=== PATIENT | female | born 1995 | race Caucasian/White ===

== ENCOUNTER 2018-05-02 23:46 | Inpatient (IN) ==
[2018-05-03 00:06] VITALS: BMI 47.4
[2018-05-03 00:07] LABS: BILIRUBIN,URINE NEGATIVE (NEGATIVE); BLOOD/HEMOGLOBIN,URINE 3+ (NEGATIVE); GLUCOSE, URINE NEGATIVE (NEGATIVE); KETONES,URINE 4+ (NEGATIVE); LEUKOCYTE ESTERASE ,URINE 3+ (NEGATIVE); NITRITES,URINE NEGATIVE (NEGATIVE); PROTEIN,URINE 1+ (NEGATIVE); UROBILINOGEN,URINE NORMAL (NORMAL)
[2018-05-03 00:13] LABS: APPEARANCE,URINE CLOUDY (CLEAR); COLOR,URINE YELLOW (YELLOW)
[2018-05-03 00:14] LABS: BACTERIA,URINE 2+ /HPF (NEGATIVE); CALCIUM OXALATE CRYSTALS,UR MANY /HPF (NEGATIVE); RBC,URINE 30-50 /HPF (NONE SEEN); SQUAMOUS EPITHELIAL CELL,UR NUMEROUS /HPF (NEGATIVE)
[2018-05-03] MEDS ORDERED: D5 1/2 NS 1000 ML 1,000 ML IV ONE (00:48)
[2018-05-03] MEDS ORDERED: D5 1/2 NS 1000 ML 1,000 ML IV SCH ×2 (01:00→02:00)
[2018-05-03] MEDS ORDERED: REGLAN INJ 10 MG VIAL IVP PRN (01:04)
[2018-05-03] MEDS ORDERED: PITOCIN IVP ONE (01:04)
[2018-05-03] MEDS ORDERED: MORPHINE SULFATE INJ 2 MG INJ IVP PRN (01:04)
[2018-05-03] MEDS ORDERED: NUBAIN INJ 200 MG VIAL MULTIDOSE IVP PRN (01:04)
[2018-05-03] MEDS ORDERED: D5LR 1L W PITOCIN 10 UNITS/L 10 UNITS/1,000 ML BAG IV PRN (01:04)
[2018-05-03] MEDS ORDERED: PHENERGAN INJ 25 MG IV PRN ×2 (01:04→06:19)
[2018-05-03] MEDS ORDERED: FENTANYL INJ 100 mcg ONE (01:18)
[2018-05-03] MEDS ORDERED: LR 1000 ML IV 1,000 ML IV ONE (01:18)
[2018-05-03] MEDS ORDERED: XYLOCAINE 1 % (PLAIN) ONE (01:18)
[2018-05-03] MEDS ORDERED: XYLOCAINE-MPF 1% ONE (01:19)
[2018-05-03] MEDS ORDERED: NAROPIN EPIDURAL 0.2% + FENTANYL 90MCG 60 ML EPI ONE (01:19)
[2018-05-03] MEDS ORDERED: ADRENALINE CHL INJ ONE (01:19)
[2018-05-03] MEDS ORDERED: D5 1/2 NS 1L W PITOCIN 20 UNITS/L 20 UNITS/1,000 ML BAG IV ONE (01:19)
--- NOTE | 2018-05-03 01:22 | DR.OB ---
OB Quick Note - Assessment/Plan Assessment/Plan: L&D 05/03/18 at 1:15am S-No complaint. O-Afebrile,VSS [id number] with good LTV, +accel, no decel. CTX=q 2-3 min., mod. by palpation CVX=3cm/50%/-1/VTX AROM with clear fluid. IUPC and FSE placed. A-IUP at 39 4/7 weeks in labor PIH P-Begin pitocin augmentation F/U preeclamptic labs Anticipate
[2018-05-03 01:50] LABS: URIC ACID 4.9 mg/dL (2.6-6.0)
[2018-05-03] MEDS: D5 1/2 NS 1000 ML 1,000 ML with PITOCIN 20 UNITS IV SCH ×8 (06:05→22:56)
--- NOTE | 2018-05-03 06:25 | DR.OB ---
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 Head delivered over intact perineum. Nuchal cord x 1 reduced. Nose and mouth bulb suctioned. Body delivered over intact perineum. Cord clamped x 2 and cut. Infant handed to attendant. Cord sent for gases. Placenta delivered spontaneously / intact / 3 vessel cord. No CVX / vaginal / perineal tears. Viable female , VTX/OA, wt=8'14" and 9/9, stable to NBN. Mother stable to RR. [id number].
[2018-05-03] MEDS ORDERED: MILK OF MAGNESIA PO PRN ×2 (07:34→20:00)
[2018-05-03] MEDS ORDERED: DERMOPLAST SPRAY TOP PRN (07:34)
[2018-05-03] MEDS ORDERED: AMBIEN PO PRN (07:34)
[2018-05-03] MEDS ORDERED: ADACEL or BOOSTRIX TDaP VACCINE IM ONE (07:34)
[2018-05-03] MEDS: PRENATAL PLUS PO SCH (09:48)
[2018-05-03] MEDS: ZANTAC PO SCH ×2 (09:48→20:36)
[2018-05-03] MEDS: MOTRIN TAB 800 MG PO PRN ×2 (12:14→20:36)
[2018-05-03] MEDS ORDERED: COLACE CAP 100 MG PO SCH (21:00)
[2018-05-04 05:16] LABS: HEMATOCRIT 31.5 % (36.0-47.0)
[2018-05-04 05:24] LABS: HEMOGLOBIN 10.5 g/dL (12.0-16.0)
[2018-05-04 07:58] VITALS: BP 128/52
[2018-05-04] MEDS: ZANTAC PO SCH (08:20)
[2018-05-04] MEDS: PRENATAL PLUS PO SCH (08:20)
== END 2018-05-04 12:45 | disposition home or self-care (01) | DRG 807 ==
LOC: ER 23:47 → LD 05-03 00:50 → MED/SURG 05-03 07:33
PROVIDERS: ADMIT Specialist; ATTEND Specialist
DX: O26.93 Pregnancy related conditions, unspecified, third trimester; Z37.0 Single live birth; O13.3 Gestational [pregnancy-induced] hypertension without significant proteinuria, third trimester; Z01.818 Encounter for other preprocedural examination; Z3A.39 39 weeks gestation of pregnancy
CPT/HCPCS: 36415; 59409; 80048; 80307; 81001; 83615; 84450; 84460; 84550; 85014; 85018; 85025; 85384; 85610; 85730; 86592; 86850; 86900; 86901; 87086; 96365; 99284; A4216; A4222; S0197; G0434; J0171; J2590; J3010; J7120; S5010

== ENCOUNTER 2018-05-06 15:41 | Inpatient (IN) ==
[2018-05-06] MEDS ORDERED: NS 1000 ML 1,000 ML ONE ×2 (16:04→17:47)
--- NOTE | 2018-05-06 16:19 | DR.DIZZY ---
HPI - Time seen Time seen: 16:14 - PCP Primary Care Physician: PATRICK - Complaint Chief Complaint Doctor Comments: Patient is complaining of LLQ pain worst when she stand, frontal headache, cold cough hands tingling with temp 100.6 at home. states she has had cold episode last night and could not get warm. States she just gave three days ago with out problems except induced hypertension. Patient denies chest pain, SOB, cold or cough. States she is a patient of Dr. Berman and her appetite is good. She denies tobacco or alcohol use. states the headache is 5 of 10 and her left lower pain is 10 of 10. States she has had headaches before and she went to see a neurologist that wanted to do a MRI scan but she was . Chief Complaint:: PT. C/O DIZZINESS, WEAKNESS, FEVER, BACK AND LEFT LOWER ABDOMINAL PAIN. PT. IS 3 DAYS POST FROM A VAGINAL FULL TERM DELIVERY PER DR. NGUYEN. PT. HAD PIH. - Nurses Notes Reviewed Nurses Notes Review: Yes - Source History Provided: Patient - Mode of Arrival Mode of Arrival: Ambulatory - Timing Onset of Chief Complaint: 05/06/18 Came on: Gradually Symptom Onset: Unknown - Duration Duration: Constant How lon Duration: Days - Location of Weakness Weakness Location: None - Context Onset: At rest History of: None Stroke Symptoms: None - Severity Severity: Normal activity level - Modifying factors Worsens: Change in Position - Associated signs and symptoms Associated Signs and Symptoms: Weak, Fever, Headache PMH - PMH Past Medical History: Yes Past Medical History Comment: PCOS Past Surgical History: No Surgical History: No History - Family History History of Family Medical Conditions: Yes Family Medical History: Diabetes Mellitus, Cancer, Coronary Artery Disease - Social History Does patient currently use any type of tobacco product: No Have you used tobacco products in the last 12 months: No Type of Tobacco Use: None Does any household member use tobacco: No Alcohol Use: None Do you use any recreational Drugs:: No Lives With: Significant Other Lives Where: Home - infectious screening In the last 2 months have you had wt loss of >10#?: NO Have you had fever, night sweats or hemotysis?: No Have you traveled outside the country in the last 6 months?: No Isolation: Standard ROS - Review of Systems Constitutional: No Symptoms Reported Eyes: No Symptoms Reported ENTM: No Symptoms Reported Respiratoy: No Symptoms Reported Cardiovascular: No Symptoms Reported Gastrointestinal/Abdominal: No Symptoms Reported. negative: See HPI, Abdominal Pain, Constipation, Diarrhea, Nausea, Vomiting, Food Intolerance, Other Genitourinary: No Symptoms Reported Neurological: No Symptoms Reported Musculoskeletal: No Symptoms Reported Integumentary: No Symptoms Reported. negative: See HPI, Change in Color, Change in Hair/Nails, Dryness, Lesions, Lumps, Rash, Itching, Wound, Bruises, Juandice, Other Hematologic/Lymphatic: No Symptoms Reported Endocrine: No Symptoms Reported Psychiatric: No Symptoms Reported. negative: See HPI, Anxiety, Depression, Hallucinations, Excessive crying, Suicidal, Other PE - General Limitations: No Limitations General Appearance: Alert, In Distress (moderate) - Head Head Exam: Normal Inspection, Atraumatic, Normocephalic - Eyes Eye exam: Normal Appearance, PERRL, EOMI. negative: Scleral Icterus, Conjunctival Injection, Nystagmus, Miosis, Mydrasis, Periorbital Swelling, Periorbital Tenderness, Other Pupils: Regular, Round: Bilateral Sclera/Conjunctival: Normal Inspection: Bilateral Anterior Chamber: Normal Inspection: Bilateral Posterior Chamber: Deferred: Bilateral - ENT ENT Exam: Normal Exam, Normal Oropharynx, Normal External Ear Exam, Mucous Membranes Moist, TM's Normal Bilaterally - Neck Neck Exam: Normal Inspection, Full ROM, Trachea Midline - Chest Chest Inspection: Normal Inspection, Symmetric Chest Wall Rise - Respiratory Respiratory Exam: Normal Lung Sounds Bilat. negative: Accessory Muscle Use, Chest Wall Tenderness, Prolonged Expiratory Phase, Respiratory Distress, Stridor, Other Respiratory Exam: Bilateral Clear to Auscultation - Cardiovascular Cardiovascular Exam: Regular Rate, Normal Rhythm, Normal Heart Sounds - Abdominal Exam Abdominal Exam: Normal Inspection, Normal Bowel Sounds, Soft Abdominal Tenderness: LLQ, Moderate - Rectal Rectal Exam: Deferred - Extremeties Extremities Exam: Normal Inspection, Full ROM, Normal Capillary Refill. negative: Tenderness, Edema, Joint Swelling, Calf Tenderness, Other - Back Back Exam: Normal Inspection, Full ROM - Neurologic Neurological Exam: Alert, Oriented X3, CN II-XII Intact, Normal Gait, Reflexes Normal Patient Oriented To: Person, Place, Time Speech: Fluid Speech Cranial Nerve Exam: EOM Function (II, III, IV, ): Normal, Facial Sensation (V): Normal, Facial Palsy (VII): Normal, Gag reflex (XI): Normal, Spinal Accessory Function (XI): Normal, Tongue Deviation: Normal Cerebellar Function: Finger to Nose: Normal Cerebellar Function: Normal Gait Motor Strength - LUE: 5/5 Motor Strength - RUE: 5/5 Motor Strength - LLE: 5/5 Motor Strength - RLE: 5/5 Upper Motor Neuron Exam: Babinski Sign: Normal Sensory Exam Upper Extremity: Light Touch: Normal Sensory Exam Lower Extremity: Light Touch: Normal DTR: bicep (L): 2+, bicep (R): 2+ - Psychiatric Psychiatric Exam: Normal Affect, Normal Mood - Skin Skin Exam: Warm, Dry, Intact, Normal Color - Vital Signs Vitals: Temperature 99.9 F Pulse Rate [Apical] 126 Pulse Rate [Standing] 150 Pulse Rate [Sitting] 143 Pulse Rate [Lying] 132 Pulse Rate 174 Respiratory Rate 17 Blood Pressure [Right Arm] 105/53 Blood Pressure [Left Arm] 120/67 Blood Pressure [Standing] 134/79 Blood Pressure [Sitting] 127/60 Blood Pressure [Lying] 137/65 Blood Pressure 111/58 O2 Sat by Pulse Oximetry 99 Course - Reevaluation 1st: Improved - Consultation Called: 22:19 Call Returned: 22:19 (Dr. Roldan to admit) - Education/Counseling Education/Counseling: Patient, Family Educated On: Treatment, Diagnosis, Needs for Follow Up ROR - Labs Reviewed Laboratory Results Reviewed?: Yes (All labs and x-ray results reviewed and discussed with patient) Result Diagrams: 05/06/18 15:55 05/06/18 15:55 - Other Results Comments: CT pelvis: Enlarged uterus with prominent endometrium and hyperdense fluid with scattered foci of gas within the endometrial canal. Post endometritis should be consided. No acute intra-abdominal or intraelvic process - XRAY XRAY Interpreted by: Radiologist (CTA: Nondiagnostiac examination. No acute intrathoracic process.) XRAY Findings: CT abdomen and pelvis: Enlarged uterus prominent endometriumand hyperdense - EKG Rate: 166 [place]: Normal Rhythm: ST, PVCs Block: None ST: Nonsp - Labs Reviewed Laboratory: WBC 16.6 X10^3/uL (3.6-10.0) H 05/06/18 15:55 RBC 4.23 X10^6/uL (3.5-5.4) 05/06/18 15:55 Hgb 11.6 g/dL (12.0-16.0) L 05/06/18 15:55 Hct 34.9 % (36.0-47.0) L 05/06/18 15:55 MCV 82.5 fL (80.0-100.0) 05/06/18 15:55 MCH 27.5 pg (27.0-34.0) 05/06/18 15:55 MCHC 33.3 g/dL (33.0-35.0) 05/06/18 15:55 RDW 14.0 % (11.6-16.5) 05/06/18 15:55 Plt Count 322 X10^3/uL (150.0-450.0) 05/06/18 15:55 MPV 8.8 fL (7.4-11.0) 05/06/18 15:55 Neut % (Auto) 85.8 % (42.0-75.0) H 05/06/18 15:55 Lymph % (Auto) 7.8 % (21.0-51.0) L 05/06/18 15:55 [place] % (Auto) 5.0 % (0.0-13.0) 05/06/18 15:55 Eos % (Auto) 1.3 % (0.9-2.9) 05/06/18 15:55 Baso % (Auto) 0.1 % (0.2-1.0) L 05/06/18 15:55 Neut # (Auto) 14.3 x10^3/uL (2.2-4.8) H 05/06/18 15:55 Lymph # (Auto) 1.3 X10^3/uL (1.3-2.9) 05/06/18 15:55 [place] # (Auto) 0.8 x10^3/uL (0.3-0.8) 05/06/18 15:55 Eos # (Auto) 0.2 x10^3/uL (0.0-0.2) 05/06/18 15:55 Baso # (Auto) 0.0 X10^3/uL (0.0-0.1) 05/06/18 15:55 Absolute Nucleated RBC 0.0 /100WBC 05/06/18 15:55 D-Dimer 1380 ng/mL (0-400) H* 05/06/18 17:45 Sodium 141 mmol/L (136-145) 05/06/18 15:55 Corrected Sodium TNP 05/06/18 15:55 Potassium 3.6 mmol/L (3.5-5.1) 05/06/18 15:55 Chloride 106 mmol/L (98-107) 05/06/18 15:55 Carbon Dioxide 24.1 mmol/L (21-32) 05/06/18 15:55 BUN 8 mg/dL (7-18) 05/06/18 15:55 Creatinine 0.66 mg/dL (0.55-1.02) 05/06/18 15:55 Est GFR (MDRD) Af Amer > 60 (>60) 05/06/18 15:55 Est GFR (MDRD) Non-Af > 60 (>60) 05/06/18 15:55 Glucose 103 mg/dL (65-99) H 05/06/18 15:55 Lactic Acid 2.1 mmol/L (0.4-2.0) H 05/06/18 17:45 Calcium 9.1 mg/dL (8.5-10.1) 05/06/18 15:55 Corrected Calcium 10.3 mg/dL (8.5-10.1) H 05/06/18 15:55 Total Bilirubin 0.20 mg/dL (0.2-1.0) 05/06/18 15:55 AST 15 Units/L (15-37) 05/06/18 15:55 ALT 21 Units/L (12-78) 05/06/18 15:55 Alkaline Phosphatase 97 Units/L (46-116) 05/06/18 15:55 Total Protein 6.5 g/dL (6.4-8.2) 05/06/18 15:55 Albumin 2.5 g/dL (3.4-5.0) L 05/06/18 15:55 Globulin 4.0 g/dL (2.5-4.5) 05/06/18 15:55 Albumin/Globulin Ratio 0.6 Ratio (1.1-2.1) L 05/06/18 15:55 Amylase 45 Units/L (25-115) 05/06/18 15:55 Lipase 122 Units/L (73-393) 05/06/18 15:55 Specimen Type Clean catch urine 05/06/18 16:11 Urine Color Red (YELLOW) 05/06/18 16:11 Urine Appearance Cloudy (CLEAR) 05/06/18 16:11 Urine pH 8.0 (5.0 - 8.0) 05/06/18 16:11 Ur Specific [place] 1.010 (1.000-1.030) 05/06/18 16:11 Urine Protein 3+ (NEGATIVE) 05/06/18 16:11 Urine Glucose (UA) Negative (NEGATIVE) 05/06/18 16:11 Urine Ketones Negative (NEGATIVE) 05/06/18 16:11 Urine Occult Blood 5+ (NEGATIVE) 05/06/18 16:11 Urine Nitrite Negative (NEGATIVE) 05/06/18 16:11 Urine Bilirubin Negative (NEGATIVE) 05/06/18 16:11 Urine Urobilinogen Normal (NORMAL) 05/06/18 16:11 Ur Leukocyte Esterase 2+ (NEGATIVE) 05/06/18 16:11 Urine RBC Tntc /HPF (NONE SEEN) 05/06/18 16:11 Urine WBC 30-50 /HPF (NONE SEEN) 05/06/18 16:11 Ur Squamous Epith Cells Many /HPF (NEGATIVE) 05/06/18 16:11 Urine Bacteria 1+ /HPF (NEGATIVE) 05/06/18 16:11 Ur Culture Indicated? Yes/culture set up 05/06/18 16:11 Urine Opiates Screen Negative (NEG=<300) 05/06/18 16:02 Urine Methadone Screen Negative (NEG=<300) 05/06/18 16:02 Ur Barbiturates Screen Negative (NEG=<200) 05/06/18 16:02 Ur Phencyclidine Scrn Negative (NEG=<25) 05/06/18 16:02 Ur Amphetamines Screen Negative (NEG=<1000) 05/06/18 16:02 U Benzodiazepines Scrn Negative (NEG=<200) 05/06/18 16:02 Urine Cocaine Screen Negative (NEG=<300) 05/06/18 16:02 U Marijuana (THC) Screen Negative (NEG=<50) 05/06/18 16:02 Influenza Type A (PCR) Negative (NEGATIVE) 05/06/18 16:11 Influenza Type B (PCR) Negative (NEGATIVE) 05/06/18 16:11 - Diagnosis Discharge Problem: Sinus tachycardia, SIRS (systemic inflammatory response syndrome), Abdominal pain, Endometritis, Abnormal laboratory test Chest pain Qualifiers: Chest pain type: unspecified Qualified Code(s): R07.9 - Chest pain, unspecified Urinary tract infection Qualifiers: Urinary tract infection type: acute cystitis Hematuria presence: without hematuria Qualified Code(s): N30.00 - Acute cystitis without hematuria - Discharge Plan Disposition: ADMITTED INPATIENT Condition: Stable - Follow ups/Referrals Follow ups/Referrals: EMANUEL NGUYEN [Primary Care Provider] - 3 days - Instructions
[2018-05-06 16:25] LABS: BASOPHILS % (AUTO) 0.1 % (0.2-1.0); EOSINOPHILS # (AUTO) 0.2 x10^3/uL (0.0-0.2); EOSINOPHILS % (AUTO) 1.3 % (0.9-2.9); HEMATOCRIT 34.9 % (36.0-47.0); HEMOGLOBIN 11.6 g/dL (12.0-16.0); LYMPHOCYTES # (AUTO) 1.3 X10^3/uL (1.3-2.9); LYMPHOCYTES % (AUTO) 7.8 % (21.0-51.0); MEAN CORPUSCULAR HEMOGLOBIN 27.5 pg (27.0-34.0); MEAN CORPUSCULAR HGB CONC 33.3 g/dL (33.0-35.0); MEAN CORPUSCULAR VOLUME 82.5 fL (80.0-100.0); MEAN PLATELET VOLUME 8.8 fL (7.4-11.0); MONOCYTES # (AUTO) 0.8 x10^3/uL (0.3-0.8); NEUTROPHILS # (AUTO) 14.3 x10^3/uL (2.2-4.8); NEUTROPHILS % (AUTO) 85.8 % (42.0-75.0); PLATELET COUNT 322 X10^3/uL (150.0-450.0); RED BLOOD COUNT 4.23 X10^6/uL (3.5-5.4); WHITE BLOOD COUNT 16.6 X10^3/uL (3.6-10.0)
[2018-05-06 16:26] LABS: BILIRUBIN,URINE NEGATIVE (NEGATIVE); BLOOD/HEMOGLOBIN,URINE 5+ (NEGATIVE); GLUCOSE, URINE NEGATIVE (NEGATIVE); KETONES,URINE NEGATIVE (NEGATIVE); LEUKOCYTE ESTERASE ,URINE 2+ (NEGATIVE); NITRITES,URINE NEGATIVE (NEGATIVE); PROTEIN,URINE 3+ (NEGATIVE); UROBILINOGEN,URINE NORMAL (NORMAL)
[2018-05-06 16:39] LABS: ALANINE AMINOTRANSFERASE 21 Units/L (12-78); ALBUMIN 2.5 g/dL (3.4-5.0); ALKALINE PHOSPHATASE 97 Units/L (46-116); AMYLASE 45 Units/L (25-115); ASPARTATE AMINO TRANSFERASE 15 Units/L (15-37); BLOOD UREA NITROGEN 8 mg/dL (7-18); CALCIUM 9.1 mg/dL (8.5-10.1); CARBON DIOXIDE 24.1 mmol/L (21-32); CHLORIDE 106 mmol/L (98-107); COR CA(FOR HYPOALB) 10.3 mg/dL (8.5-10.1); CREATININE 0.66 mg/dL (0.55-1.02); LIPASE 122 Units/L (73-393); SODIUM 141 mmol/L (136-145); TOTAL PROTEIN 6.5 g/dL (6.4-8.2); eGFR NON BLACK RACES > 60 (>60)
--- NOTE | 2018-05-06 16:49 | CT ---
CT HEAD WITHOUT CONTRAST CLINICAL HISTORY: 22-year-old female with dizziness and weakness with fever. COMPARISON: None. TECHNIQUE: Multiple axial CT images were obtained from the skull base to the cranial vertex without the administration of contrast. FINDINGS: No evidence of abnormal intra- or extra axial fluid collections, midline shift, or mass effect. Bruno white differentiation is maintained. The ventricular system is normal in size and morphology. The basal cisterns are normal in appearance. The paranasal sinuses, mastoid air cells, and tympanic cavities are clear. IMPRESSION: No acute intracranial process. Reported By:
[2018-05-06 16:52] LABS: APPEARANCE,URINE CLOUDY (CLEAR); COLOR,URINE RED (YELLOW); RBC,URINE TNTC /HPF (NONE SEEN); SQUAMOUS EPITHELIAL CELL,UR MANY /HPF (NEGATIVE)
[2018-05-06 16:53] LABS: BACTERIA,URINE 1+ /HPF (NEGATIVE)
[2018-05-06] MEDS ORDERED: ROCEPHIN VIAL 1 GRAM IVP ONE (16:55)
[2018-05-06] MEDS ORDERED: ROCEPHIN VIAL 1 GRAM ONE (16:58)
--- NOTE | 2018-05-06 17:08 | CT ---
CT ABDOMEN AND PELVIS WITHOUT CONTRAST CLINICAL HISTORY: 22-year-old female with dizziness, weakness and fever with back and lower abdominal pain. Three days from full-term vaginal delivery. COMPARISON: None. TECHNIQUE: Multiple contiguous computed tomographic axial images of the abdomen and pelvis were obtained without the use of oral or intravenous contrast. Images were reformatted in the coronal and sagittal planes. FINDINGS: Study is limited secondary to lack of intravenous contrast. The lung bases demonstrate no evidence of focal air-space opacification, pleural effusion, pneumothorax, or suspicious pulmonary nodules. The imaged inferior mediastinum and heart are normal in appearance without evidence of pericardial effusion. The liver, gallbladder, pancreas, and spleen are within normal limits for noncontrast imaging. The adrenal glands and kidneys are normal bilaterally. There are no nephroureteral stones or perinephric fluid collections. There is no evidence of hydroureteronephrosis and the ureters run in an unobstructed course to a partially distended urinary bladder. Uterus is enlarged with prominent endometrium and hyperdense fluid with scattered foci of gas within the endometrial canal. No significant inflammatory change within the adnexa or pelvis otherwise. The appendix is normal in appearance. The bowel is without obstruction or inflammation and there is no free fluid or free air within the peritoneal cavity. There are no pathologically enlarged lymph nodes in the abdomen or pelvis. The arteriovascular structures are within normal limits for a study without contrast. Soft tissues are normal. The osseous structures are intact without fracture or malalignment. IMPRESSION: 1. Study is limited secondary to lack of intravenous contrast. 2. Enlarged uterus with prominent endometrium and hyperdense fluid with scattered foci of gas within the endometrial canal. endometritis should be considered, correlate clinically. Follow-up with OB. 3. No acute intra-abdominal or intrapelvic process otherwise. Reported By:
[2018-05-06] MEDS ORDERED: NS 1000 ML 1,000 ML IV ONE (17:30)
[2018-05-06] MEDS ORDERED: LOPRESSOR INJ 5 MG AMP IVP ONE ×3 (18:07→22:23)
[2018-05-06 18:09] LABS: LACTIC ACID 2.1 mmol/L (0.4-2.0)
[2018-05-06] MEDS ORDERED: LOPRESSOR INJ 5 MG AMP ONE ×3 (19:12→22:25)
[2018-05-06] MEDS ORDERED: TORADOL 30 MG VIAL ONE (19:14)
[2018-05-06] MEDS ORDERED: TORADOL 30 MG VIAL IVP ONE (19:23)
--- NOTE | 2018-05-06 19:41 | CT ---
CT ANGIOGRAPHY OF THE CHEST CLINICAL HISTORY: 22-year-old female with elevated D-dimer, 3 days. COMPARISON: None. TECHNIQUE: CT angiogram of the chest was performed following the uncomplicated administration of 75 mL and then 50 mL Omnipaque 350 intravenous contrast as per routine pulmonary embolus protocol. Coronal and Sagittal reformats provided. MIP reformats are submitted for review. Initial contrast injection was improperly timed with patient movement and heavy breathing throughout the entire scan. FINDINGS: Study is nondiagnostic for pulmonary embolus secondary to suboptimal bolus timing. The heart is normal in size and there is no pericardial effusion. There is no axillary or mediastinal lymphadenopathy. Evaluation of the lung parenchyma demonstrates no pulmonary nodules, masses, or airspace opacities. The trachea and mainstem bronchi are patent. There is no pleural effusion or pneumothorax. The arteriovascular structures are within normal limits. Soft tissues are normal. The osseous structures are intact without fracture or malalignment. See CT abdomen and pelvis performed this date for complete description of the same. IMPRESSION: 1. Nondiagnostic examination for pulmonary embolus secondary to suboptimal bolus timing. 2. No acute intrathoracic process otherwise. Reported By:
[2018-05-06] MEDS ORDERED: LOVENOX INJ 120 MG SYR SC STA ×2 (21:14→22:06)
[2018-05-06] MEDS ORDERED: LOVENOX INJ 120 MG SYR SC ONE (22:02)
[2018-05-06] MEDS ORDERED: MORPHINE SULFATE INJ 2 MG INJ IVP PRN (22:32)
[2018-05-06 23:35] LABS: CKMB % 2.6 % (<4); CREATINE KINASE 38 Units/L (26-192); CREATINE KINASE MB < 1.0 ng/mL (0-4.0); TROPONIN I < 0.02 ng/mL (0-1.5)
[2018-05-06] MEDS ORDERED: TYLENOL 325 MG TAB PO ONE (23:36)
[2018-05-06] MEDS: TYLENOL 325 MG TAB PO PRN (23:38)
[2018-05-07 00:54] VITALS: BMI 45.8
[2018-05-07] MEDS: ROCEPHIN VIAL 2 GRAMS IVP SCH ×2 (01:02→10:12)
[2018-05-07] MEDS: TYLENOL 325 MG TAB PO PRN (04:41)
[2018-05-07 05:58] LABS: BASOPHILS % (AUTO) 0.2 % (0.2-1.0); EOSINOPHILS # (AUTO) 0.1 x10^3/uL (0.0-0.2); EOSINOPHILS % (AUTO) 0.6 % (0.9-2.9); HEMATOCRIT 32.3 % (36.0-47.0); HEMOGLOBIN 10.8 g/dL (12.0-16.0); LYMPHOCYTES # (AUTO) 1.7 X10^3/uL (1.3-2.9); MEAN CORPUSCULAR HEMOGLOBIN 27.8 pg (27.0-34.0); MEAN CORPUSCULAR HGB CONC 33.4 g/dL (33.0-35.0); MEAN CORPUSCULAR VOLUME 83.3 fL (80.0-100.0); MEAN PLATELET VOLUME 8.5 fL (7.4-11.0); MONOCYTES # (AUTO) 1.1 x10^3/uL (0.3-0.8); MONOCYTES % (AUTO) 5.9 % (0.0-13.0); NEUTROPHILS # (AUTO) 15.5 x10^3/uL (2.2-4.8); NEUTROPHILS % (AUTO) 84.3 % (42.0-75.0); PLATELET COUNT 324 X10^3/uL (150.0-450.0); RED BLOOD COUNT 3.87 X10^6/uL (3.5-5.4); RED CELL DISTRIBUTION WIDTH 14.1 % (11.6-16.5); WHITE BLOOD COUNT 18.4 X10^3/uL (3.6-10.0)
[2018-05-07 06:27] LABS: ALANINE AMINOTRANSFERASE 19 Units/L (12-78); ALBUMIN 2.1 g/dL (3.4-5.0); ALKALINE PHOSPHATASE 89 Units/L (46-116); ASPARTATE AMINO TRANSFERASE 14 Units/L (15-37); BLOOD UREA NITROGEN 6 mg/dL (7-18); CALCIUM 8.7 mg/dL (8.5-10.1); CARBON DIOXIDE 22.2 mmol/L (21-32); CHLORIDE 105 mmol/L (98-107); CHOL/HDL RATIO 2.8 (0.0-5.0); CHOLESTEROL 218 mg/dL (0-200); CKMB % 3.1 % (<4); COR CA(FOR HYPOALB) 10.2 mg/dL (8.5-10.1); CREATINE KINASE 32 Units/L (26-192); CREATINE KINASE MB < 1.0 ng/mL (0-4.0); CREATININE 0.59 mg/dL (0.55-1.02); HDL CHOLESTEROL 79 mg/dL (40-60); SODIUM 139 mmol/L (136-145); TOTAL PROTEIN 5.9 g/dL (6.4-8.2); TRIGLYCERIDES 124 mg/dL (0-150); TROPONIN I < 0.02 ng/mL (0-1.5); eGFR NON BLACK RACES > 60 (>60)
[2018-05-07] MEDS ORDERED: K-RIDER 10 MEQ/NS 100 ML 10 MEQ/100 ML BAG IV PRN (06:31)
[2018-05-07] MEDS ORDERED: POTASSIUM CHL 40 MEQ/NS 0.45% 500 ML IV PRN (06:31)
[2018-05-07] MEDS ORDERED: KLOR-CON PO PRN (06:31)
[2018-05-07] MEDS ORDERED: MICRO K EXTEN CAP 10 MEQ PO PRN (06:31)
[2018-05-07] MEDS ORDERED: POTASSIUM CHL 60 MEQ/NS 0.45% 500 ML IV PRN (06:31)
[2018-05-07] MEDS ORDERED: POTASSIUM CHLORIDE LIQ 20 MEQ UDC PO PRN (06:31)
[2018-05-07] MEDS ORDERED: K-DUR TAB 20 MEQ PO ONE (06:34)
[2018-05-07] MEDS: K-DUR TAB 20 MEQ PO PRN ×2 (06:39→12:13)
[2018-05-07] MEDS: LOVENOX INJ 120 MG SYR SC SCH ×2 (10:11→21:10)
[2018-05-07] MEDS: PROTONIX INJ 40 MG VIAL IVP SCH (10:12)
[2018-05-07] MEDS: MAGNESIUM SULFATE 1 GRAM/100 mL PREMIX 1 GM/100 ML BAG IV PRN ×2 (10:13→11:20)
[2018-05-07 11:07] LABS: CREATINE KINASE 39 Units/L (26-192); CREATINE KINASE MB < 1.0 ng/mL (0-4.0); TROPONIN I < 0.02 ng/mL (0-1.5)
[2018-05-07 11:17] LABS: CKMB % 2.6 % (<4)
[2018-05-07] MEDS ORDERED: ADVIL TAB 200 MG PO PRN (11:39)
[2018-05-07] MEDS: COLACE CAP 100 MG PO SCH ×2 (12:12→21:10)
--- NOTE | 2018-05-07 20:37 | DR.H&P ---
H&P - History & Physical for Day of: H&P Date: 05/06/18 - Chief Complaint Chief Complaint: ABDOMINAL PAIN, FEVER - History of Present Illness History of Present Illness: IS A 22 YEAR OLD PATIENT OF . SHE IS 3 DAYS POST FROM A VAGINAL FULL TERM DELIVERY. SHE PRESENTED TO THE ER WITH COMPLAINTS OF LLQ PAIN, FRONTAL HEADACHE, AND FEVER. SHE REPORTS SUDDEN CHILLS LAST ONE NIGHT PRIOR. ON ARRIVAL, VITALS WERE 100.9 -152-22-98%-125/60. LABS WERE OBTAINED. ABNORMAL LAB VALUES INCLUDE THE FOLLOWING: WBC 16.6, HGB 11.6, HCT 34.9, D-DIMER 1380, GLUCOSE 103, ALBUMIN 2.5. CARDIAC ENZYMES WITHIN NORMAL LIMITS. A URINALYSIS WAS OBTAINED AND REVEALED: WBC 30-50, RBC TNTC, BACTERIA 1+, LEUKOCYTES 2+, PROTEIN 3+. BLOOD AND URINE CULTURES WERE OBTAINED. INFLUENZA NEGATIVE. EKG REVEALED SINUS TACHYCARDIA WITH HR 166. AN ABDOMEN/PELVIS CT WITHOUT CONTRAST WAS OBTAINED AND REVEALED: Study is limited secondary to lack of intravenous contrast.Enlarged uterus with prominent endometrium and hyperdense fluid with scattered foci of gas within the endometrial canal. endometritis should be considered, correlate clinically. Follow-up with OB. No acute intra-abdominal or intrapelvic process otherwise. BRAIN CT OBTAINED AND REVEALED: NO ACUTE INTRACRANIAL PROCESS. A CHEST CT WAS OBTAINED AND REVEALED: Nondiagnostic examination for pulmonary embolus secondary to suboptimal bolus timing. No acute intrathoracic process otherwise. SHE WAS GIVEN A TOTAL OF 10MG LOPRESSOR IVP, LOVENOX 120MG SC X 1, TORADOL 30MG IV X 1, ROCPEHIN 1GM IV, AND A NORMAL SALINE BOLUS IN THE ER. SHE WAS ADMITTED FOR FURTHER EVALUATION AND TREATMENT OF UROSEPSIS AND PERSISTENT SINUS TACHYCARDIA. SHE WAS STARTED ON ROCEPHIN 2GM IV DAILY, LOVENOX 120MG SC BID, PROTONIX 40MG IV DAILY, AND MORPHIN 2MG IV Q2H PRN. WE PLANNED TO FOLLOW UP WITH AM LABS AND CONTINUE TO MONITOR. - Past Surgical History Surgical History: No History - Family History Family Medical History: Diabetes Mellitus, Cancer, Hypertension - Social History Does patient currently use any type of tobacco product: No Have you used tobacco products in the last 12 months: No Type of Tobacco Use: None Does any household member use tobacco: No Alcohol Use: None Drug Use: None - Medications Home Medications: metformin Allergy (Verified 03/30/18 17:23) ondansetron [From Zofran] Allergy (Verified 03/30/18 17:23) sulfamethoxazole [From Bactrim] Allergy (Verified 03/30/18 17:23) trimethoprim [From Bactrim] Allergy (Verified 03/30/18 17:23) - Review of Systems Constitutional: Fever, Chills Eyes: No Symptoms Reported ENT: No Symptoms Reported Respiratory: No Symptoms Reported Cardiovascular: No Symptoms Reported Gastrointestinal: Abdominal Pain Musculoskeletal: No Symptoms Reported Skin: No Symptoms Reported Neurological: No Symptoms Reported - Physical Exam Vital Signs: Temperature 98.5 F Pulse Rate [Apical] 99 Pulse Rate [Standing] 150 Pulse Rate [Sitting] 143 Pulse Rate [Lying] 132 Pulse Rate 94 Respiratory Rate 26 Blood Pressure [Right Arm] 130/69 Blood Pressure [Left Arm] 120/67 Blood Pressure [Standing] 134/79 Blood Pressure [Sitting] 127/60 Blood Pressure [Lying] 137/65 Blood Pressure 130/77 O2 Sat by Pulse Oximetry 99 Oriented: Normal Eyes: Normal Ear: Normal Nose: Normal Throat: Normal Respiratory: Clear Throughout Cardiovascular: Tachycardia. negative: S3, S4, Murmur : Normal Auscultation: Bowel Sounds: Normal Palpation: Normal Tenderness: LLQ, Moderate. 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
[2018-05-08 06:49] LABS: BASOPHILS % (AUTO) 0.5 % (0.2-1.0); EOSINOPHILS # (AUTO) 0.3 x10^3/uL (0.0-0.2); EOSINOPHILS % (AUTO) 3.1 % (0.9-2.9); HEMATOCRIT 33.1 % (36.0-47.0); HEMOGLOBIN 10.9 g/dL (12.0-16.0); LYMPHOCYTES # (AUTO) 2.1 X10^3/uL (1.3-2.9); LYMPHOCYTES % (AUTO) 21.4 % (21.0-51.0); MEAN CORPUSCULAR HEMOGLOBIN 27.3 pg (27.0-34.0); MEAN CORPUSCULAR HGB CONC 32.8 g/dL (33.0-35.0); MEAN CORPUSCULAR VOLUME 83.4 fL (80.0-100.0); MEAN PLATELET VOLUME 8.6 fL (7.4-11.0); MONOCYTES # (AUTO) 0.8 x10^3/uL (0.3-0.8); NEUTROPHILS # (AUTO) 6.5 x10^3/uL (2.2-4.8); PLATELET COUNT 338 X10^3/uL (150.0-450.0); RED BLOOD COUNT 3.97 X10^6/uL (3.5-5.4); WHITE BLOOD COUNT 9.7 X10^3/uL (3.6-10.0)
[2018-05-08 07:05] LABS: ALANINE AMINOTRANSFERASE 23 Units/L (12-78); ALBUMIN 2.1 g/dL (3.4-5.0); ALKALINE PHOSPHATASE 88 Units/L (46-116); ASPARTATE AMINO TRANSFERASE 23 Units/L (15-37); BLOOD UREA NITROGEN 6 mg/dL (7-18); CALCIUM 9.2 mg/dL (8.5-10.1); CARBON DIOXIDE 22.4 mmol/L (21-32); CHLORIDE 110 mmol/L (98-107); COR CA(FOR HYPOALB) 10.7 mg/dL (8.5-10.1); CREATININE 0.59 mg/dL (0.55-1.02); MAGNESIUM 2.1 mg/dL (1.7-2.9); SODIUM 141 mmol/L (136-145); TOTAL PROTEIN 6.2 g/dL (6.4-8.2); eGFR NON BLACK RACES > 60 (>60)
[2018-05-08 07:06] LABS: LACTIC ACID 0.6 mmol/L (0.4-2.0)
[2018-05-08] MEDS: COLACE CAP 100 MG PO SCH (08:39)
[2018-05-08] MEDS: PROTONIX INJ 40 MG VIAL IVP SCH (08:39)
[2018-05-08] MEDS: ROCEPHIN VIAL 2 GRAMS IVP SCH (08:40)
[2018-05-08] MEDS: LOVENOX INJ 120 MG SYR SC SCH (08:42)
[2018-05-08 10:51] LABS: BILIRUBIN,URINE NEGATIVE (NEGATIVE); BLOOD/HEMOGLOBIN,URINE 5+ (NEGATIVE); GLUCOSE, URINE NEGATIVE (NEGATIVE); KETONES,URINE NEGATIVE (NEGATIVE); LEUKOCYTE ESTERASE ,URINE 3+ (NEGATIVE); NITRITES,URINE NEGATIVE (NEGATIVE); PROTEIN,URINE 3+ (NEGATIVE); UROBILINOGEN,URINE NORMAL (NORMAL)
[2018-05-08 11:02] VITALS: BP 117/77
[2018-05-08 11:03] LABS: APPEARANCE,URINE CLOUDY (CLEAR); COLOR,URINE RED (YELLOW)
[2018-05-08 11:04] LABS: BACTERIA,URINE NEGATIVE /HPF (NEGATIVE); MUCUS,URINE FEW /HPF (NEGATIVE); RBC,URINE 20-30 /HPF (NONE SEEN); SQUAMOUS EPITHELIAL CELL,UR FEW /HPF (NEGATIVE)
== END 2018-05-08 12:20 | disposition home or self-care (01) | DRG 690 ==
LOC: ER 15:43 → ICU 22:29
PROVIDERS: ADMIT Internal Medicine; ATTEND Internal Medicine
DX: R10.84 Generalized abdominal pain; R51 Headache; R42 Dizziness and giddiness; R00.0 Tachycardia, unspecified; N30.00 Acute cystitis without hematuria; R07.89 Other chest pain; R94.31 Abnormal electrocardiogram [ECG] [EKG]; R53.1 Weakness; Z98.890 Other specified postprocedural states
CPT/HCPCS: 36415; 70450; 71275; 74176; 80053; 80061; 80307; 81001; 82150; 82550; 82553; 83605; 83690; 83735; 84132; 84484; 85025; 85378; 87040; 87086; 87502; 93005; 96365; 96372; 96374; 96375; 99284; 99285; A4216; A4222; C9113; G0434; J0696; J1650; J1885; J3475; J3490; J7030